=== PATIENT | male | born 1960 | race Caucasian/White ===

== ENCOUNTER 2019-12-19 19:58 | Inpatient (IN) | payer MEDICAID, SELFPAY ==
[~2019-12-19] VITALS: Ht 177.8 cm; Wt 117.9 kg
[2019-12-19 19:59] VITALS: BP_SYST 123
--- NOTE | 2019-12-19 20:12 | NUR ---
pt in [facility] ambulance. pt alert and oriented. VSS.
--- NOTE | 2019-12-19 20:14 | NUR ---
BRAYAN BURGER at bedside examining patient.
[2019-12-19 20:53] LABS: BASOPHILS # (AUTO) 0.2 K/uL (0.0-0.2); BASOPHILS % (AUTO) 4.5 % (0.0-2.0); EOSINOPHILS % (AUTO) 0.5 % (0.0-4.0); HEMATOCRIT 39.1 % (36-54); HEMOGLOBIN 13.1 g/dL (14.0-18.0); LYMPHOCYTES # (AUTO) 1.1 K/uL (1.0-5.5); LYMPHOCYTES % (AUTO) 21.2 % (20.5-51.5); MEAN CORPUSCULAR HEMOGLOBIN 28 pg (27-31); MEAN CORPUSCULAR HGB CONC 34 % (32-36); MEAN CORPUSCULAR VOLUME 85 fL (79.0-98.0); MONOCYTES # (AUTO) 0.4 K/uL (0.0-1.0); MONOCYTES % (AUTO) 7.3 % (1.7-9.3); NEUTROPHILS # (AUTO) 3.6 K/uL (1.8-7.7); NEUTROPHILS % (AUTO) 66.5 % (40.0-70.0); PLATELET COUNT (AUTO) 171 K/uL (130-430); RED BLOOD CELL COUNT(AUTO) 4.63 MIL/uL (4.2-6.2); RED CELL DISTRIBUTION WIDTH 14.8 % (9.0-15.0); WHITE BLOOD COUNT (AUTO) 5.4 K/uL (4.8-10.8)
[2019-12-19 20:54] LABS: CALCIUM 8.4 mg/dL (8.4-11.0); CREATININE 1.12 mg/dL (0.55-1.30); POTASSIUM 3.4 mmol/L (3.5-5.1)
[2019-12-19 20:59] LABS: PROTHROMBIN TIME 10.2 SECS (9.5-12.5)
[2019-12-19 21:00] LABS: ALBUMIN 3.3 g/dL (3.4-4.8); TOTAL BILIRUBIN 0.8 mg/dL (0.0-1.0)
--- NOTE | 2019-12-19 21:04 | NUR ---
pt in [facility]. side rails up. urinal at bedside. denies pain and no acute distress noted.
[2019-12-19] MEDS ORDERED: DILTIAZEM HCL 25 MG/5 ML VIAL IVP ONE (21:30)
[2019-12-19 21:44] LABS: BILIRUBIN,URINE NEGATIVE (NEGATIVE); CLARITY/URINE CLEAR (CLEAR); COLOR,URINE YELLOW (YELLOW); GLUCOSE,URINE NEGATIVE (NEGATIVE); KETONES,URINE NEGATIVE (NEGATIVE); LEUKOCYTE ESTERASE ,URINE NEGATIVE (NEGATIVE); NITRITE, URINE NEGATIVE (NEGATIVE); PROTEIN URINE NEGATIVE (NEGATIVE); UROBILINOGEN,URINE 0.2 (0.2-1.0)
[2019-12-19 21:50] LABS: BLOOD, URINE TRACE (NEGATIVE)
--- NOTE | 2019-12-19 22:46 | NUR ---
PT MADE AWARE OF ADMISSION. PT IS ALERT AND ORIENTED. ABLE TO MAKE NEEDS KNOWN.
--- NOTE | 2019-12-20 01:39 | NUR ---
pt awakens to verbal stimuli. no distress noted. denies pain.
--- NOTE | 2019-12-20 04:51 | NUR ---
pt resting in gurney with siderails up. Urinal at bedside and call light within reach. pt denies pain and no distress noted.
[2019-12-20 06:43] LABS: CALCIUM 8.4 mg/dL (8.4-11.0); CREATININE 0.84 mg/dL (0.55-1.30); POTASSIUM 3.2 mmol/L (3.5-5.1)
[2019-12-20 06:46] LABS: BASOPHILS % (AUTO) 0.3 % (0.0-2.0); EOSINOPHILS % (AUTO) 0.3 % (0.0-4.0); HEMOGLOBIN 13.6 g/dL (14.0-18.0); LYMPHOCYTES # (AUTO) 1.6 K/uL (1.0-5.5); MEAN CORPUSCULAR HEMOGLOBIN 28 pg (27-31); MEAN CORPUSCULAR HGB CONC 34 % (32-36); MEAN CORPUSCULAR VOLUME 84 fL (79.0-98.0); MONOCYTES # (AUTO) 0.5 K/uL (0.0-1.0); MONOCYTES % (AUTO) 10.7 % (1.7-9.3); NEUTROPHILS # (AUTO) 2.9 K/uL (1.8-7.7); NEUTROPHILS % (AUTO) 56.7 % (40.0-70.0); PLATELET COUNT (AUTO) 167 K/uL (130-430); RED BLOOD CELL COUNT(AUTO) 4.78 MIL/uL (4.2-6.2); WHITE BLOOD COUNT (AUTO) 5.1 K/uL (4.8-10.8)
--- NOTE | 2019-12-20 07:28 | NUR ---
Patient report received from OLAF Quinteros. Patient sleeping comfortably, patient placed back on telemetry monitor.
[2019-12-20] MEDS ORDERED: HEPARIN SODIUM,PORCINE 5000 UNITS/ML VIAL SUBCUT SCH (09:00)
--- NOTE | 2019-12-20 09:26 | NUR ---
Spoke with Dr. Bee via phone regarding patients increased heart rate with moving from bed to chair. Patient HR is 135-165. MD to see patient. Order received for Diltiazem 30 mg PO TID. Order entered by RN.
--- NOTE | 2019-12-20 09:46 | NUR ---
at bedside, verbal order received for Cardizem 10mg IVP for HR 157. Given. Post Cardizem HR 127 BPM. Order entered by Dr. Bee for PO Cardizem at this time.
[2019-12-20] MEDS ORDERED: DILTIAZEM HCL 25 MG/5 ML VIAL ONE (09:52)
[2019-12-20] MEDS ORDERED: DILTIAZEM HCL 25 MG/5 ML VIAL IVP ONE (10:00)
[2019-12-20] MEDS ORDERED: METOPROLOL TARTRATE 50 MG TABLET PO ONE (10:30)
--- NOTE | 2019-12-20 11:44 | NUR ---
PATIENT RESTING COMFORTABLE. CALLED FOR PATIENT LUNCH TRAY. PATIENT LINENS CHANGED AND PATIENT GIVEN SHEET FOR COMFORT.
--- NOTE | 2019-12-20 13:12 | NUR ---
PATIENT RESTING COMFORTABLY. NEEDS ARE MET AT THIS TIME. WILL CONTINUE TO FOLLOW UP AND MONITOR.
[2019-12-20] MEDS ORDERED: APIXABAN 2.5 MG TABLET PO ONE (14:00)
[2019-12-20] MEDS ORDERED: DILTIAZEM HCL 30 MG TABLET PO SCH (14:00)
[2019-12-20] MEDS: DILTIAZEM HCL 30 MG TABLET PO SCH ×2 (15:04→22:00)
--- NOTE | 2019-12-20 15:46 | NUR ---
PATIENT RESTING COMFORTABLY. NEEDS ARE MET AT THIS TIME.
--- NOTE | 2019-12-20 17:17 | NUR ---
PATIENT RESTING COMFORTBALY. NEEDS ARE MET AT THIS TIME. CALLED FOR PATIENT DINNER TRAY. WILL CONTINUE TO FOLLOW UP AND MONITOR.
--- NOTE | 2019-12-20 19:37 | NUR ---
PATIENT REPORT GIVEN TO OLAF DIMAS.
--- NOTE | 2019-12-20 19:43 | NUR ---
Provided Dinner Meal Tray.
--- NOTE | 2019-12-20 20:40 | NUR ---
Empty urinal, given a new urinal and change a new bed side commode.
[2019-12-20] MEDS: METOPROLOL TARTRATE 50 MG TABLET PO SCH (21:00)
[2019-12-20] MEDS: APIXABAN 2.5 MG TABLET PO SCH (21:08)
--- NOTE | 2019-12-20 21:10 | NUR ---
Given routine HS medication, Hold Metoprolol BP 127/70.
--- NOTE | 2019-12-20 22:19 | NUR ---
Spoke with family (his brother -Deni) -update patient status.
--- NOTE | 2019-12-20 22:21 | NUR ---
HR 66, Hold Cardizem PO Medication.
--- NOTE | 2019-12-21 00:49 | NUR ---
Patient is asleeping on bed, no SOB, Oxygen sat 96 %RA.
--- NOTE | 2019-12-21 03:05 | NUR ---
Patient is sleeping on bed , no SOB, VSS. HR 71.
--- NOTE | 2019-12-21 04:06 | NUR ---
Re-position patient, Change patient to a new gown, BP 133/77, HR 71, RR 18 Oxygen sat 96 % RA
--- NOTE | 2019-12-21 05:37 | NUR ---
Patient is sleeping on bed, no SOB, vss.
[2019-12-21] MEDS: DILTIAZEM HCL 30 MG TABLET PO SCH (05:54)
--- NOTE | 2019-12-21 05:55 | NUR ---
HR 64, Hold Cardizem medication.
--- NOTE | 2019-12-21 06:03 | NUR ---
Provided AM care set at bedside.
--- NOTE | 2019-12-21 07:15 | NUR ---
Assumed care of patient, report received from OLAF Grissom. Pt currently resting in bed, will continue to monitor.
--- NOTE | 2019-12-21 07:15 | NUR ---
Care of patient endorsed to OLAF Rosenthal.
[2019-12-21] MEDS ORDERED: POTASSIUM CHLORIDE 20 MEQ TAB.PRT.SR PO PRN (07:45)
[2019-12-21] MEDS ORDERED: DOCUSATE SODIUM 100 MG CAPSULE PO PRN (07:45)
[2019-12-21] MEDS ORDERED: MORPHINE 2 MG/ML INJ. SYRINGE IVP PRN ×2 (07:45)
[2019-12-21] MEDS ORDERED: ONDANSETRON HCL 4 MG/2 ML VIAL IVP PRN (07:45)
[2019-12-21] MEDS ORDERED: ZOLPIDEM TARTRATE 5 MG TABLET PO PRN (07:45)
[2019-12-21] MEDS ORDERED: LORazepam 2 MG/ML VIAL IVP PRN (07:45)
[2019-12-21] MEDS ORDERED: ACETAMINOPHEN 325 MG TABLET PO PRN (07:45)
[2019-12-21] MEDS ORDERED: MUPIROCIN 2% TOPICAL OINTMENT 22 GM NS PRN (07:45)
[2019-12-21] MEDS ORDERED: MAGNESIUM SULFATE 50 ML IV PRN (07:45)
[2019-12-21] MEDS ORDERED: DILT30TA36 PO (07:53)
[2019-12-21] MEDS ORDERED: APIX5TAB PO (07:53)
[2019-12-21] MEDS ORDERED: METO-442 PO (07:53)
[2019-12-21] MEDS ORDERED: ZINC220T4 PO (07:53)
[2019-12-21] MEDS ORDERED: DEX (07:53)
[2019-12-21] MEDS ORDERED: DEXA6TAB5 PO (07:53)
[2019-12-21] MEDS ORDERED: ASCO500T20 PO (07:53)
[2019-12-21 08:17] LABS: BASOPHILS % (AUTO) 0.3 % (0.0-2.0); EOSINOPHILS % (AUTO) 0.7 % (0.0-4.0); HEMATOCRIT 37.2 % (36-54); HEMOGLOBIN 12.7 g/dL (14.0-18.0); LYMPHOCYTES # (AUTO) 1.5 K/uL (1.0-5.5); LYMPHOCYTES % (AUTO) 27.2 % (20.5-51.5); MEAN CORPUSCULAR HEMOGLOBIN 29 pg (27-31); MEAN CORPUSCULAR HGB CONC 34 % (32-36); MEAN CORPUSCULAR VOLUME 83 fL (79.0-98.0); MONOCYTES # (AUTO) 0.6 K/uL (0.0-1.0); MONOCYTES % (AUTO) 10.3 % (1.7-9.3); NEUTROPHILS # (AUTO) 3.4 K/uL (1.8-7.7); NEUTROPHILS % (AUTO) 61.5 % (40.0-70.0); PLATELET COUNT (AUTO) 171 K/uL (130-430); RED BLOOD CELL COUNT(AUTO) 4.47 MIL/uL (4.2-6.2); RED CELL DISTRIBUTION WIDTH 14.9 % (9.0-15.0); WHITE BLOOD COUNT (AUTO) 5.6 K/uL (4.8-10.8)
[2019-12-21 08:54] LABS: CALCIUM 8.3 mg/dL (8.4-11.0); CREATININE 0.92 mg/dL (0.55-1.30); POTASSIUM 3.4 mmol/L (3.5-5.1)
[2019-12-21] MEDS ORDERED: ASCORBIC ACID 500 MG TABLET PO SCH (09:00)
[2019-12-21] MEDS ORDERED: DECADRON 4 MG TABLET PO SCH (09:00)
[2019-12-21] MEDS ORDERED: CHOLECALCIFEROL (VITAMIN D3) 2,000 UNIT TABLET PO SCH (09:00)
[2019-12-21] MEDS: APIXABAN 2.5 MG TABLET PO SCH (09:07)
[2019-12-21] MEDS: METOPROLOL TARTRATE 50 MG TABLET PO SCH (09:08)
--- NOTE | 2019-12-21 13:20 | NUR ---
Patient given written and verbal discharge instructions and verbalizes understanding. ER MD discussed with patient the results and treatment provided. Patient in stable condition. ID arm band removed. IV catheter removed intact and dressing applied, no active bleeding. E-precriptions sent to pharmacy, Eliquis, Vitamin C, Decadron, Cardizem, Lopressor and Zinc. Patient educated on pain management and to follow up with PMD. Pain Scale 0. Opportunity for questions provided and answered. Medication side effect fact sheet provided.
[2019-12-21 13:22] VITALS: BP_SYST 138
--- NOTE | 2019-12-23 14:04 | NUR ---
DISCHARGE FOLLOW UP CALL: FORCER MAKER received a call back from pt. Per pt he is "doing okay", but with "a little cough". Pt stated he was unable to fill his prescription because he "couldn't afford it". FORCER MAKER informed pt that he has Medi-Salbador presumptive, FORCER MAKER provided him with his ID# and encouraged to call pharmacy with the insurance information. Pt stated he has the GoodRx card but the medications are still expensive, and unable to afford. FORCER MAKER encouraged pt to follow up with Popeye from [facility] on the Medi-Salbador application so that he can obtain a full scope medi-salbador. Pt also was not able to make a follow up appointment with PCP due to being uninsured. FORCER MAKER provided pt with local [facility] that accepts his insurance. Pt stated that he is "isolating as best as I can". FORCER MAKER offered for electronics technician apprentice to call, pt refused. FORCER MAKER encouraged pt to call SS if questions arise. No further SS call needed.
== END 2019-12-21 13:20 | disposition home or self-care (01) | DRG 137 ==
LOC: SED 19:58 → STU 22:23
PROVIDERS: ADMIT Family Medicine; ATTEND Family Medicine
DX: U07.1 COVID-19 (principal); E87.1 Hypo-osmolality and hyponatremia; D63.8 Anemia in other chronic diseases classified elsewhere; E87.6 Hypokalemia; E66.9 Obesity, unspecified; E11.9 Type 2 diabetes mellitus without complications; E46 Unspecified protein-calorie malnutrition; I48.91 Unspecified atrial fibrillation; I10 Essential (primary) hypertension; Z82.49 Family history of ischemic heart disease and other diseases of the circulatory system; Z68.37 Body mass index [BMI] 37.0-37.9, adult; Z83.3 Family history of diabetes mellitus
CPT/HCPCS: 36415; 71045; 80048; 80053; 81003; 83036; 83605; 83880; 84132-TC; 84443-TC; 84484; 85025; 85610-TC; 85730-TC; 87040-TC; 87086; 93005; 99285; G0378; J1644; J3490; J8540; U0003-CS